=== PATIENT | male | born 1990 | race Caucasian/White ===

== ENCOUNTER 2016-12-11 23:13 | Emergency (ER) | payer OTHER ==
[2016-12-12] MEDS ORDERED: Lidocaine 1% (PF) 30 ML VIAL ONE (00:25)
== END 2016-12-12 00:50 | disposition home or self-care (01) ==
LOC: ERS 23:13
DX: L03.031 Cellulitis of right toe (principal); F17.210 Nicotine dependence, cigarettes, uncomplicated
CPT/HCPCS: 10060; J2001

== ENCOUNTER 2017-02-01 00:21 | Emergency (ER) | payer OTHER ==
--- NOTE | 2017-02-01 07:55 | RAD ---
PA AND LATERAL VIEWS CHEST: HISTORY: Chest pain. FINDINGS: The cardiomediastinum is normal. The lungs are expanded and clear. The bony thorax is unremarkable. IMPRESSION: Normal exam. POS: OFF
== END 2017-02-01 02:40 | disposition home or self-care (01) ==
LOC: ERS 00:21
DX: S29.012A Strain of muscle and tendon of back wall of thorax, initial encounter (principal); Z87.891 Personal history of nicotine dependence; X58.XXXA Exposure to other specified factors, initial encounter
CPT/HCPCS: 71020